=== PATIENT | female | born 1935 | race Caucasian/White ===

== ENCOUNTER 2023-05-10 08:22 | Outpatient (CLI) | payer MEDICARE, BC, SELFPAY | END 2023-05-10 08:23 | disposition home or self-care (01) | LOC: INJ CL 08:33 | PROVIDERS: PCP Family Medicine; Visit Provider Family Medicine | DX: M54.16 Radiculopathy, lumbar region (principal); M51.36 Other intervertebral disc degeneration, lumbar region | CPT/HCPCS: 62323; J0702; Q9966 ==

== ENCOUNTER 2024-01-10 09:19 | Outpatient (CLI) | payer MEDICARE, BC, SELFPAY | END 2024-01-10 09:20 | disposition home or self-care (01) | LOC: INJ CL 09:19 | PROVIDERS: PCP Family Medicine; Visit Provider Family Medicine | DX: M54.16 Radiculopathy, lumbar region (principal); M51.369 Other intervertebral disc degeneration, lumbar region without mention of lumbar back pain or lower extremity pain | CPT/HCPCS: 62323; J0702; Q9966 ==

== ENCOUNTER 2024-02-28 09:15 | Outpatient (CLI) | payer MEDICARE, BC, SELFPAY | END 2024-02-28 09:16 | disposition home or self-care (01) | LOC: INJ CL 09:16 | PROVIDERS: PCP Family Medicine; Visit Provider Family Medicine | DX: M54.16 Radiculopathy, lumbar region (principal); M51.369 Other intervertebral disc degeneration, lumbar region without mention of lumbar back pain or lower extremity pain | CPT/HCPCS: 62323; J0702; Q9966 ==

== ENCOUNTER 2024-06-19 15:03 | Outpatient (CLI) | payer MEDICARE, BC, SELFPAY ==
--- NOTE | 2024-06-19 15:30 | MR_ITS ---
[address] [address] Phone:?[phone] Fax:?[phone] Referring Physician Information: Braeden Grossman M.D. [address] [facility] [address] Phone:?[phone] Fax:?[phone] Patient:Niall Currie D.O.B:?1935 Sex:?Female Phone:? [facility] MRN:?[id number] Exam Date:?06/19/2024 EXAM: MRI OF THE LEFT KNEE CLINICAL INFORMATION: The patient is an 89-year-old with left knee pain. Evaluate for meniscal tear. PRIOR SURGERY: None reported. COMPARISON STUDIES: Comparison is made to prior radiographs dated 06/13/2024. TECHNICAL INFORMATION: Imaging was performed on a high-field, 1.5 Aubree MR scanner. Axial proton-density and fat-suppressed T2 imaging of the left knee was performed in addition to sagittal proton-density and fat-suppressed proton- density imaging. Coronal proton-density and STIR imaging was also produced. FINDINGS: Articular/Extraarticular collections: Effusion: Moderate. Popliteal cyst: A moderate popliteal cyst can be seen on sagittal series 6 image 11, measuring approximately 8.3 cm in craniocaudal dimension. Low signal intensity debris within the popliteal cyst can be seen. Surrounding soft tissue edema and/or hemorrhage is noted. Loose bodies: No well-defined intra-articular loose bodies are seen. Subcutaneous and extraarticular soft tissues: Nonspecific subcutaneous soft tissue edema and/or hemorrhage can be seen circumferentially about the left knee. Osseous structures: There is cortical irregularity, subcortical edema, and subcortical cystic change noted along the articular surfaces of the patellofemoral articulation, most prominently seen along the lateral patellar facet. The findings are in keeping with chondromalacia and chondral loss discussed below and are consistent with patellofemoral osteoarthritis. Additional mild reactive bony changes can be seen along the lateral tibial plateau, in keeping with meniscal tearing and chondral loss discussed below. No other bony abnormalities about the knee are seen. There is no evidence for fracture, contusion, or stress injury. Ligamentous structures: ACL: Intact and normal in appearance. PCL: Intact and normal in appearance. MCL: Intact and normal in appearance. LCL: Intact and normal in appearance. Posterolateral corner: Intact and normal in appearance. Posteromedial corner: No posteromedial corner soft tissue injury. Semimembranosus and pes anserine tendons demonstrate no tendinopathy or associated bursitis. Extensor mechanism/Patellar retinacular structures: Patellar tendon: Intact, without tendinopathy. Quadriceps tendon: Intact, without tendinopathy. Retinacula: The medial and lateral retinacula are intact. The medial patellofemoral ligament is intact. Medial compartment: Medial meniscus: The medial meniscus is abnormal in appearance. There is degeneration and attenuation of the middle and posterior portions of the medial meniscus with poorly defined tearing of the middle one third seen on coronal series 7 images 17 and 18. The area of tearing is thought to measure approximately 10 mm in greatest dimension. No parameniscal cyst formation is identified. Medial femoral condyle: Grade II chondromalacia can be seen along the weightbearing surfaces of the medial femoral condyle. No full-thickness chondral defects are seen. Medial tibial plateau: Grade II chondromalacia can be seen along the weightbearing surfaces of the medial tibial plateau. No full-thickness chondral defects are identified. Lateral compartment: Lateral meniscus: Broad-based, complex tearing and degeneration of the anterior, middle, and posterior portions of the lateral meniscus can be seen on sagittal series 5 image 22 and on coronal series 7 image 17. There is extension to the meniscal attachment. No definite parameniscal cyst formation is identified. Lateral femoral condyle: Grade II to III chondromalacia can be seen along the central and posterior weightbearing surfaces of the lateral femoral condyle. Lateral tibial plateau: Full-thickness and near full-thickness chondral loss can be seen along the central and posterior weightbearing surfaces of the lateral tibial plateau. Patellofemoral compartment: Patella: There is full-thickness and near full-thickness chondral loss along the lateral patellar facet with underlying bony change. Trochlea: Full-thickness chondral loss can be seen along the central and lateral articular surfaces of the femoral trochlea on axial series 4 image 17 and on sagittal series 6 image 19. The area measures 24 mm in mediolateral dimension and 17 mm in craniocaudal dimension. Neurovascular: No definite neurovascular abnormalities are seen. CONCLUSION: 1. Broad-based, complex tearing and degeneration of the anterior, middle, and posterior portions of the lateral meniscus. 2. Degeneration of the medial meniscus with poorly defined tearing of the middle one third. 3. 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 4. The cruciate and collateral ligaments appear intact. 5. Moderate knee joint effusion and moderate popliteal cyst. AEC Electronically signed on 06/20/2024 9:24:00 AM by Byron Lauren M.D.
== END 2024-06-19 15:04 | disposition home or self-care (01) ==
PROVIDERS: PCP Family Medicine; Visit Provider Orthopaedic Surgery
DX: M25.562 Pain in left knee (principal); S83.272A Complex tear of lateral meniscus, current injury, left knee, initial encounter; S83.242A Other tear of medial meniscus, current injury, left knee, initial encounter; M94.262 Chondromalacia, left knee; M25.462 Effusion, left knee; M71.22 Synovial cyst of popliteal space [Baker], left knee
CPT/HCPCS: 73721

== ENCOUNTER 2024-08-28 10:23 | Day surgery (SDC) | payer MEDICARE, BC, SELFPAY ==
[2024-08-28] VITALS (22 sets, daily range): BP systolic 94–200; BP diastolic 56–115; PULSE 57–88; RESP 14–20; TEMP 35.9–36.8; O2SAT 92–100; BMI 23.8
[2024-08-28] MEDS: LACTATED RINGERS 1000 ML 1,000 ML 100 ML IV ×2 (10:05→12:23)
[2024-08-28] MEDS: SODIUM CHLORIDE 0.9 % (FLUSH) 10 ML SYRINGE IVF (11:05)
[2024-08-28] MEDS: OXYCODONE (CR) 10 MG TAB.ER.12H PO (11:20)
[2024-08-28] MEDS: ACETAMINOPHEN 500 MG TABLET 1000 MG PO ×2 (11:20→23:42)
[2024-08-28] MEDS: fentaNYL 100 MCG/2 ML inj IVP (11:25)
[2024-08-28] MEDS: MIDAZOLAM HCL 1 MG/ML inj IVP (11:25)
--- NOTE | 2024-08-28 11:32 | SUR.PREOP ---
TIME?OUT:?1122, left knee PT/RN/MDA?VERIFICATION?OF?SURGICAL?SITE,?PROCEDURE,?AND?CONSENT OBTAINED?PRIOR?TO?INVASIVE?PROCEDURE.
[2024-08-28] MEDS: TRANEXAMIC ACID 100 MG/ML INJ 1000 MG IV (12:04)
[2024-08-28] MEDS: CEFAZOLIN 1 GM inj IVP (12:04)
--- NOTE | 2024-08-28 13:11 | CRLHL7_ITS ---
For Patients: As a result of the Cures Act, medical imaging exams and procedure reports are released immediately into your electronic medical record. You may view this report before your referring provider. If you have questions, please contact your health care provider. Indication: Post op TKA Technique: Two views left knee Findings/Impression: Hardware from a left total knee arthroplasty is in satisfactory position. Bone alignment is normal. No sign of acute fracture. Postop changes are within normal limits. Dictated by Omero Munson MD @ 08/28/2024 3:40:16 PM (Electronically Signed)
--- NOTE | 2024-08-28 13:15 | P.ORPRC_ITS ---
Procedure Note Date of procedure: 08/28/24 Procedure: PREOPERATIVE DIAGNOSIS: Left knee osteoarthritis POSTOPERATIVE DIAGNOSIS: Left knee osteoarthritis NAME OF OPERATION: Left total knee arthroplasty SURGEON: Braeden Grossman MD WEATHER STRIP INSTALLER: MARY Santos ANESTHESIA: Spinal ESTIMATED BLOOD LOSS: 0 mL COMPLICATIONS: None SPECIMENS: None DRAINS: None PREOPERATIVE ANTIBIOTICS: Ancef 1 g IMPLANTS: 1. J&J Attune # 5 posterior stabilized femur 2. #4 fixed-bearing tibia 3. # 5 posterior stabilized, 5 mm fixed-bearing polyethylene 4. 35 patella INDICATIONS: The patient is a 89-year-old with a longstanding history of severe, unrelenting left knee pain secondary to end-stage (grade IV) left knee osteoarthritis. Despite appropriate nonoperative management, including activity modification, anti-inflammatories, gtlr-tty-ghgdonn pain medication, bracing, physical therapy, and injections they continue to have pain and disability. Operative intervention was offered. The risks, benefits and expected outcomes were discussed in detail. These included but were not limited to: Infection, bleeding, injury to blood vessel or nerve, venous thromboembolism. All questions were answered to their satisfaction. Use of an assistant spa director was necessary throughout the case for patient positioning and safety, soft tissue retraction, and closure. PROCEDURE: Spinal anesthesia was administered. The patient was placed supine on the operating table. The assistant spa director made sure the patient was positioned appropriately. The lower extremity was prepped and draped in the usual sterile fashion. The limb was exsanguinated with the Sean bandage. The pneumatic tourniquet was inflated to 300 mmHg. A standard anterior incision was made with the knee in flexion. Subcutaneous dissection was sharply taken through fascial layer #1. Full-thickness medial and lateral flaps were elevated. The assistant spa director retracted the soft tissues and protected them throughout the case. A standard subvastus approach was made. The patella was subluxed. The infrapatellar fat pad was debrided. The menisci and cruciate ligaments were sharply d?brided. Marginal osteophytes were d?brided with the rongeur. The drill was used to penetrate the femoral canal. The canal was aspirated and irrigated with pulse lavage. The intramedullary femoral guide was placed for a 5-degree valgus cut, removing 12 mm off the distal femur. The saw was used to make the cut. Whitesides line and the trans epicondylar axis were marked. The femoral sizing guide was pinned onto the distal femur. Three degrees of external rotation nicely parallels the transepicondylar axis. Pins were placed for posterior referencing. The four-in-one cutting guide was pinned onto the distal femur. The anterior, posterior, and chamfer cuts were made. The assistant spa director protected the collateral ligaments. The box cutting guide was pinned. The box cuts were made. The boxed trial was placed and was an excellent fit. Drill holes for the lugs were made. Attention was then turned to the proximal tibia. The extramedullary tibial guide was placed for a neutral varus/valgus cut with 5 degrees of posterior slope, removing 2 mm based off the medial tibial surface. The assistant spa director protected the collateral ligaments and the neurovascular bundle. The saw was used to make the cut. Trial components were placed. The knee was nicely balanced in both flexion and extension. The trial components were removed. The tray was placed in appropriate rotation, parallel to our tibial cutting pins. It was pinned by the assistant spa director and the drill and the punch were used. The tray was removed. The punch was used again. We placed a bone plug in the femoral canal. Attention was then turned to the patella. [place] patellar thickness was 20.5 mm. The lobster claw resection guide was used with the 7.5 mm agata. The saw was used to make the cut. Drill holes were made by the assistant spa director. The trial was placed and was an excellent fit. Cancellous surfaces were irrigated with pulse lavage and thoroughly dried by the assistant spa director. We cemented the tibial component, then the femoral component. We impacted the 5 mm polyethylene onto the tibial tray. The knee was brought into full extension. We then cemented the patellar component. Excessive cement was removed. The cement was allowed to harden. The knee was taken through a range of motion and was found to be nicely balanced in both flexion and extension. The patella tracks centrally. The assistant spa director did a three minute dilute Betadine solution soak. The assistant spa director irrigated the wound with 3 liters of normal saline via pulse lavage. The assistant spa director reapproximated the extensor mechanism with #1 Vicryl in an interrupted [id number]-eiabk fashion. The assistant spa director then ran the extensor mechanism with a #1 PDO Stratafix. The assistant spa director closed the subcutaneous tissues with a 3-0 Stratafix and the skin with a running 3-0 Stratafix in a subcuticular fashion. Glue was used to seal the skin. The assistant spa director placed a dry dressing. Sponge and needle counts were correct x2. The patient tolerated the procedure well. There were no apparent complications. They were carefully transferred to the hospital bed and taken to the postanesthesia care unit in satisfactory condition. PLAN: The patient will be mobilized with physical therapy. Aspirin will be used for DVT prophylaxis. They will be discharged to home once medically appropriate.
--- NOTE | 2024-08-28 13:40 | P.NB_ITS ---
Nerve Block Nerve Block Time Seen by Provider: 11:24 Date Seen: 08/28/24 Type of block requested by surgeon for post-operative analgesia: adductor canal Side: left Time out performed: Yes Verification of patient name: Yes Verification of date of : Yes Site marking: site marked Name of person performing procedure: Josue Continuous monitoring Was continuous monitoring of O2 sat, B/P, alarm security or surveillance monitor, recorded every 15 minutes?: Yes Procedure Checklist: sterile prep, needles and gloves Ultrasound guided. Images saved: Yes Medications given in 5ml increments after negative aspiration: Marcaine %: 0.25 mL: 15 Needle gauge: 20 Precedex (mcg): 25 Patient tolerated procedure well: Yes Block Charges Block Charge (with Pro Fee): Femoral Nerve Use of Ultrasound Machine for Block: Yes- US Guidance/pain block
--- NOTE | 2024-08-28 13:41 | P.NB_ITS ---
Nerve Block Nerve Block Time Seen by Provider: 11:24 Date Seen: 08/28/24 Type of block requested by surgeon for post-operative analgesia: geniculars Side: left Time out performed: Yes Verification of patient name: Yes Verification of date of : Yes Site marking: site marked Name of person performing procedure: Josue Continuous monitoring Was continuous monitoring of O2 sat, B/P, rn cardiac, recorded every 15 minutes?: Yes Procedure Checklist: sterile prep, needles and gloves Ultrasound guided. Images saved: Yes Medications given in 5ml increments after negative aspiration: Marcaine %: 0.25 mL: 9 Needle gauge: 25 Patient tolerated procedure well: Yes Block Charges Block Charge (with Pro Fee): Genicular Nerve Block
--- NOTE | 2024-08-28 13:41 | W.ANESCHARGE ---
Anesthesia Charges Start Date/Time Anesthesia Start Date: 08/28/24 Anesthesia Start Time: 11:41 Stop Date/Time Anesthesia Stop Date: 08/28/24 Anesthesia Stop Time: 13:39 Summary Extremes of Age - Over 70 or under 1: MDA Coding CPT Codes Additional Codes: Summary - Extremes of Age - Over 70 or under 1: MDA ([id number])
[2024-08-28] MEDS: OXYCODONE 5 MG TABLET PO ×2 (14:31→23:42)
--- NOTE | 2024-08-28 14:34 | P.ANES_ITS ---
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
--- NOTE | 2024-08-28 14:34 | W.ANESCHARGE ---
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
[2024-08-28] MEDS: HYDROmorphone 0.5 mg/0.5 ml inj IVP ×2 (14:59→19:57)
[2024-08-28] MEDS: LOSARTAN POTASSIUM 50 MG TABLET PO (15:22)
--- NOTE | 2024-08-28 15:34 | PM.IMCN1 ---
Date of Consult Patient: Marleen Patient Consult date: 08/28/24 Requesting Physician: Orthopedics Primary Care Provider: Elroy Savage MD Consult Narrative Reason for consult: Medical management of comorbidities Narrative: Lauryn Currie is a 89 year old female who presented to the hospital today for an elective L TKA with Dr. Grossman of Orthopedic Surgery. There were no surgical or anesthetic complications noted during procedure. Patient's H&P reviewed, PCP is Dr Savage at [facility]. Past medical history significant for: essential HTN, osteoporosis, RA. History of blood clots: No Postoperative plan: Home with children Upon arrival to the floor, patient noted to have elevated blood pressure. She did not have chest pain or a headache. She did not take her morning antihypertensives today; notably her blood pressure at her preoperative visit was 120s/60s. Review of Systems Status of ROS: Reports: 10 or more systems reviewed and unremarkable except as noted in History and below [facility] Medical History (Updated 08/28/24 @ 15:39 by Camille De La Cruz MD) Lumbar radiculopathy ?M54.16 - Radiculopathy, lumbar region (ICD-10) Symptomatic menopausal or female climacteric states ?N95.1 - Menopausal and female climacteric states (ICD-10) Diffuse cystic mastopathy ?N60.19 - Diffuse cystic mastopathy of unspecified breast (ICD-10) Chronic low back pain with bilateral sciatica ?M54.41 - Lumbago with sciatica, right side (ICD-10) ?M54.42 - Lumbago with sciatica, left side (ICD-10) ?G89.29 - Other chronic pain (ICD-10) Osteopenia ?M85.80 - Other specified disorders of bone density and structure, unspecified site (ICD-10) Colon polyps ?K63.5 - Polyp of colon (ICD-10) Hiatal hernia ?K44.9 - Diaphragmatic hernia without obstruction or gangrene (ICD-10) Cataract, right eye ?H26.9 - Unspecified cataract (ICD-10) Sensorineural hearing loss (SNHL) of both ears ?H90.3 - Sensorineural hearing loss, bilateral (ICD-10) Allergic rhinitis ?J30.9 - Allergic rhinitis, unspecified (ICD-10) Hyperlipidemia ?E78.5 - Hyperlipidemia, unspecified (ICD-10) 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 ?I08.0 - Rheumatic disorders of both mitral and aortic valves (ICD-10) Hypertension ?I10 - Essential (primary) hypertension (ICD-10) Surgical History (Updated 08/28/24 @ 15:39 by Camille De La Cruz MD) Status post left knee replacement ?Z96.652 - Presence of left artificial knee joint (ICD-10) Status post epidural steroid injection (02/28/24) ?Z92.241 - Personal history of systemic steroid therapy (ICD-10) History of right breast biopsy ?Z98.890 - Other specified postprocedural states (ICD-10) H/O umbilical hernia repair (05/23/12) ?Z98.890 - Other specified postprocedural states (ICD-10) ?Z87.19 - Personal history of other diseases of the digestive system (ICD-10) History of phacoemulsification of cataract of left eye with intraocular lens implantation (05/26/14) ?Z98.42 - Cataract extraction status, left eye (ICD-10) ?Z96.1 - Presence of intraocular lens (ICD-10) History of phacoemulsification of cataract of right eye with intraocular lens implantation (05/26/14) ?Z98.41 - Cataract extraction status, right eye (ICD-10) ?Z96.1 - Presence of intraocular lens (ICD-10) History of vitrectomy (11/15/14) ?Z98.890 - Other specified postprocedural states (ICD-10) History of esophagogastroduodenoscopy (EGD) (11/24/04) ?Z98.890 - Other specified postprocedural states (ICD-10) History of total right knee replacement (11/26/20) ?Z96.651 - Presence of right artificial knee joint (ICD-10) Family History Sister Heart disease Breast cancer Diabetes Lupus Brother Aneurysm Other High blood pressure Stroke Social History (Updated 06/06/24 @ 13:53 by Munira Clark ~ FOOD SERVER, FOOD SERVER) What is your current living situation?: I presently have a place to live Problems where you live: no known problems In the past 12 months, utilities in danger of being shut off: no In past 12 months, lack of transportation kept you from medical appts, meetings, work, or getting things needed for daily living: no In the past 12 mos, have been you worried that your food would run out before you had money to buy more?: never true In the past 12 mos, the food you bought just didn't last and you didn't have money to buy more?: never true Smoking Status: Never smoker Do you use any of these nicotine containing products: None Second hand tobacco smoke exposure: No How often do you have a drink containing alcohol: 4 or more times a week Alcohol type: beer and wine How many standard drinks containing alcohol do you have on a typical day: 1 or 2 How often do you have six or more drinks on one occasion: Never AUDIT-C Alcohol total score: 4 Non-prescribed substance use: denies use Are you now , , , , never or living with a partner: Social isolation score (0-1 are the most socially isolated patients): 0 How often does anyone, including family, friends and others, physically hurt you: never How often does anyone, including family, friends and others, insult or talk down to you: never How often does anyone, including family, friends and others, threaten you with harm: never How often does anyone, including family, friends and others, scream or curse at you: never Meds Home Medications and Allergies Home Medications ?Medication ?Instructions ?Recorded ?Confirmed ?Type hydrochlorothiazide 25 mg tablet 25 mg PO DAILY 06/13/24 08/28/24 History losartan 50 mg tablet 50 mg PO DAILY 06/13/24 08/28/24 History tramadol 50 mg tablet 50 mg PO TID PRN 08/17/24 08/28/24 History trazodone 50 mg tablet 50 mg PO HS PRN 08/17/24 08/28/24 History potassium chloride 10 mEq 20 meq PO BID 08/28/24 08/28/24 History capsule,extended release Allergies Allergy/AdvReac Type Severity Reaction Status Date / Time amlodipine (From [facility]) Allergy Verified 08/28/24 10:38 clonidine Allergy Verified 08/28/24 10:38 diltiazem Allergy Verified 08/28/24 10:38 hydralazine Allergy Verified 08/28/24 10:38 morphine Allergy Shortness Verified 08/28/24 10:38 of Breath prazosin Allergy Verified 08/28/24 10:38 rofecoxib (From Vioxx) Allergy Verified 08/28/24 10:38 Exam Narrative: Exam Narrative: GEN: Alert and oriented, nontoxic, laying comfortably in bed HEENT: EOMIs bilaterally, no scleral icterus CV: RRR, soft early systolic murmur without concerning features R: LCTA bilaterally without concerning wheezing, rales, or rhonchi Skin: No concerning skin lesions or rashes on exposed skin Neuro: Nonfocal Psych: Appropriate Const: Vital Signs, click to edit/add: Vital Signs - 24 hr 08/28/24 11:03 08/28/24 11:25 08/28/24 11:34 Temperature 98.2 F Pulse Rate 71 65 57 L Respiratory Rate 20 20 20 Blood Pressure 175/94 H 187/85 H 161/93 H Pulse Oximetry 98 100 100 Oxygen Delivery Me thod Room Air Nasal Cannula Nasal Cannula Oxygen Flow Rate 2 2 08/28/24 11:38 08/28/24 13:34 08/28/24 13:40 Temperature 98.3 F Pulse Rate 58 L 81 76 Respiratory Rate 20 14 16 Blood Pressure 137/73 94/56 L 106/63 Pulse Oximetry 100 95 93 Oxygen Delivery Me thod Nasal Cannula Room Air Oxygen Flow Rate 2 08/28/24 13:45 08/28/24 13:50 08/28/24 13:55 Temperature Pulse Rate 73 74 70 Respiratory Rate 14 16 15 Blood Pressure 122/72 131/72 139/114 H Pulse Oximetry 92 95 96 Oxygen Delivery Me thod Oxygen Flow Rate 08/28/24 14:00 08/28/24 14:07 08/28/24 14:15 Temperature 97.6 F 97.1 F L Pulse Rate 69 63 61 Respiratory Rate 14 16 16 Blood Pressure 149/85 H 163/85 H 161/92 H Pulse Oximetry 95 99 97 Oxygen Delivery Me thod Room Air Room Air Oxygen Flow Rate 08/28/24 14:30 08/28/24 14:45 08/28/24 15:00 Temperature 96.6 F L 97.1 F L Pulse Rate 62 62 66 Respiratory Rate 16 16 16 Blood Pressure 176/115 H 200/109 H 189/87 H Pulse Oximetry 95 97 98 Oxygen Delivery Me thod Room Air Room Air Room Air Oxygen Flow Rate Assessment and Plan Assessment and plan (1) Status post left knee replacement: Problem comment: - 08/28/24, Dr. Grossman Status: Acute (2) Hypertension: Status: Acute Plan - pain management and prophylaxis per orthopedic surgery team - continue home medications for comorbidities - anticipate routine postoperative course
[2024-08-28] MEDS: CEFAZOLIN 2 GM in 0.9 % SODIUM CHLORIDE Mini-bag 100 ML IVPB (17:42)
[2024-08-28] MEDS: ONDANSETRON 2 MG/ML inj 4 MG IVP (19:37)
[2024-08-28] MEDS: LACTATED RINGERS 1000 ML 1,000 ML 75 ML IV (19:57)
[2024-08-28] MEDS: POTASSIUM CHLORIDE 10 MEQ CAPSULE ER 20 MEQ PO (21:09)
[2024-08-28] MEDS: ASPIRIN 81 MG TABLET EC PO (21:09)
[2024-08-28] MEDS: SENNOSIDES 1 TAB TABLET 2 TAB PO (21:09)
[2024-08-28] MEDS: TRAZODONE HCL 50 MG TABLET PO (21:14)
[2024-08-29] MEDS: CEFAZOLIN 2 GM in 0.9 % SODIUM CHLORIDE Mini-bag 100 ML IVPB (02:44)
[2024-08-29] MEDS: ONDANSETRON 2 MG/ML inj 4 MG IVP (02:50)
[2024-08-29 03:15] VITALS: BP 129/83; PULSE 73; RESP 18; TEMP 36.4; O2SAT 94
[2024-08-29] MEDS: ACETAMINOPHEN 500 MG TABLET 1000 MG PO ×2 (06:15→11:50)
--- NOTE | 2024-08-29 06:39 | PC.NURSE ---
Picked up at 2300: Pt pleasant, alert and oriented though confused overnight. Pt made attempts to get out of bed, and bed alarms on. Dressing C/D/I. Ice pack to op site. Pt 1a walker and gait belt. Pt stated, ?I haven't slept at all, it's been a week? a calm environment provided. Pt stated pain rated at 6/10, prn oxy given. Pt stated nausea, prn Zofran given. Pt in bed, appears to be resting, call light within reach.?
[2024-08-29 06:49] LABS: Basophils Absolute Auto 0.01 K/uL (0.00-0.30); Basophils Percent Auto 0.1 % (0.0-3.0); Hematocrit 33.4 % (33.0-51.0); Hemoglobin* 11.4 gm/dL (12.0-16.0); Immature Granulocytes Abs Auto 0.02 K/uL (0.00-0.30); Immature Granulocytes Pct Auto 0.2 %; Lymphocytes Percent Auto 16.1 % (20-44); Mean Corpuscular HGB Conc 34 gm/dL (32-36); Mean Corpuscular Hemoglobin 31 pg (26-34); Mean Corpuscular Volume 90 fL (80-100); Neutrophils Percent Auto 75.6 % (42.0-72.0); Platelet Count* 179 K/uL (140-440); RDW Coefficient of Variation % 12.6 % (11.5-15.5); White Blood Count* 10.84 K/uL (4.50-11.00)
[2024-08-29 06:50] LABS: Slide Review Reflex No
[2024-08-29 06:51] LABS: Chloride* 94 mmol/L (96-114); Potassium* 3.6 mmol/L (3.6-5.1); Sodium* 130 mmol/L (135-149)
[2024-08-29 06:54] LABS: Blood Urea Nitrogen* 19 mg/dL (7-30); Creatinine* 0.6 mg/dL (0.5-1.5); Est. Creatinine Clearance* 28.47; Estimated Glomerular Filt Rate 87 ml/min
[2024-08-29 06:55] LABS: Anion Gap 8 mEq/L (7-15); Calcium* 9.1 mg/dL (8.4-10.6); Carbon Dioxide* 28 mmol/L (20-32); Glucose* 127 mg/dL (60-115)
[2024-08-29 07:28] VITALS: BP 131/79; PULSE 74; RESP 16; TEMP 36.7; O2SAT 99
[2024-08-29 07:46] VITALS: O2SAT 99
[2024-08-29] MEDS: POTASSIUM CHLORIDE 10 MEQ CAPSULE ER 20 MEQ PO (08:22)
[2024-08-29] MEDS: SENNOSIDES 1 TAB TABLET 2 TAB PO (08:22)
[2024-08-29] MEDS: ASPIRIN 81 MG TABLET EC PO (08:22)
[2024-08-29] MEDS: hydroCHLOROthiazide 25 MG TABLET PO (08:23)
[2024-08-29] MEDS: OXYCODONE 5 MG TABLET PO ×2 (08:23→11:50)
[2024-08-29] MEDS: LOSARTAN POTASSIUM 50 MG TABLET PO (08:23)
--- NOTE | 2024-08-29 08:28 | PM.ORPN ---
Subjective Subjective Time Seen by Provider: 08:28 Date Seen: 08/29/24 Principal diagnosis: Status post left knee replacement Interval history: Lauryn is comfortable this morning. She is ambulating well. She denies current nausea and is not confused. She will discharge home today. Nausea and confusion yesterday. Ortho Exam Narrative Exam Narrative: Alert and oriented x3. Patient is in no acute distress. Converses without labored breathing. Hearing is grossly intact. Ambulates with a walker. Examination of the left knee shows the dressing is intact. No erythema or warmth or sign of infection. She is able to straight leg raise. Fullness behind the knee from previous very large popliteal cyst, now likely filled with blood. Calves are soft and nontender. CMS is intact left lower extremity. Const Vital Signs, click to edit/add: Vital Signs - 24 hr 08/28/24 11:03 08/28/24 11:25 08/28/24 11:34 Temperature 98.2 F Pulse Rate 71 65 57 L Pulse Rate [Left Dorsalis Pedis] Pulse Rate [Right Pulse Oximeter] Respiratory Rate 20 20 20 Blood Pressure 175/94 H 187/85 H 161/93 H Blood Pressure [Left Arm] Pulse Oximetry 98 100 100 Oxygen Delivery Method Room Air Nasal Cannula Nasal Cannula Oxygen Flow Rate 2 2 08/28/24 11:38 08/28/24 13:34 08/28/24 13:40 Temperature 98.3 F Pulse Rate 58 L 81 76 Pulse Rate [Left Dorsalis Pedis] Pulse Rate [Right Pulse Oximeter] Respiratory Rate 20 14 16 Blood Pressure 137/73 94/56 L 106/63 Blood Pressure [Left Arm] Pulse Oximetry 100 95 93 Oxygen Delivery Method Nasal Cannula Room Air Oxygen Flow Rate 2 08/28/24 13:45 08/28/24 13:50 08/28/24 13:55 Temperature Pulse Rate 73 74 70 Pulse Rate [Left Dorsalis Pedis] Pulse Rate [Right Pulse Oximeter] Respiratory Rate 14 16 15 Blood Pressure 122/72 131/72 139/114 H Blood Pressure [Left Arm] Pulse Oximetry 92 95 96 Oxygen Delivery Method Oxygen Flow Rate 08/28/24 14:00 08/28/24 14:07 08/28/24 14:15 Temperature 97.6 F 97.1 F L Pulse Rate 69 63 61 Pulse Rate [Left Dorsalis Pedis] Pulse Rate [Right Pulse Oximeter] Respiratory Rate 14 16 16 Blood Pressure 149/85 H 163/85 H 161/92 H Blood Pressure [Left Arm] Pulse Oximetry 95 99 97 Oxygen Delivery Method Room Air Room Air Oxygen Flow Rate 08/28/24 14:30 08/28/24 14:45 08/28/24 15:00 Temperature 96.6 F L 97.1 F L Pulse Rate 62 62 66 Pulse Rate [Left Dorsalis Pedis] Pulse Rate [Right Pulse Oximeter] Respiratory Rate 16 16 16 Blood Pressure 176/115 H 200/109 H 189/87 H Blood Pressure [Left Arm] Pulse Oximetry 95 97 98 Oxygen Delivery Method Room Air Room Air Room Air Oxygen Flow Rate 08/28/24 15:00 08/28/24 15:30 08/28/24 16:00 Temperature 96.6 F L Pulse Rate 66 68 Pulse Rate [Left Dorsalis Pedis] Pulse Rate [Right Pulse Oximeter] Respiratory Rate 16 16 14 Blood Pressure 186/90 H 151/90 H Blood Pressure [Left Arm] Pulse Oximetry 92 96 95 Oxygen Delivery Method Room Air Room Air Room Air Oxygen Flow Rate 08/28/24 17:00 08/28/24 18:00 08/28/24 19:00 Temperature 97 F L 97.1 F L 97.1 F L Pulse Rate 76 80 88 Pulse Rate [Left Dorsalis Pedis] Pulse Rate [Right Pulse Oximeter] Respiratory Rate 16 16 16 Blood Pressure 157/82 H 147/76 H 151/82 H Blood Pressure [Left Arm] Pulse Oximetry 97 92 96 Oxygen Delivery Method Room Air Room Air Room Air Oxygen Flow Rate 08/28/24 23:30 08/28/24 23:30 08/28/24 23:35 Temperature 98.2 F Pulse Rate Pulse Rate [Left Dorsalis Pedis] Pulse Rate [Right Pulse Oximeter] 79 79 Respiratory Rate 18 18 Blood Pressure Blood Pressure [Left Arm] 129/82 Pulse Oximetry 97 97 Oxygen Delivery Method Room Air Room Air Oxygen Flow Rate 08/29/24 03:15 08/29/24 07:28 08/29/24 07:46 Temperature 97.6 F 98.0 F Pulse Rate Pulse Rate [Left Dorsalis Pedis] 74 Pulse Rate [Right Pulse Oximeter] 73 Respiratory Rate 18 16 Blood Pressure Blood Pressure [Left Arm] 129/83 131/79 Pulse Oximetry 94 99 99 Oxygen Delivery Method Room Air Room Air Room Air Oxygen Flow Rate Assessment and Plan Assessment and plan (1) Status post left knee replacement: Problem details: - 08/28/24, Dr. Grossman Status: Acute Assessment and Plan: Plan for discharge is today to home if they meet discharge criteria. DVT prophylaxis includes aspirin 81 mg twice daily x1 month, Compression stockings as needed for swelling. Frequent ambulation, every hour throughout the day. Remove dressing in 1 week. Observe wound and phone Orthopedics with any questions or concerns Return to clinic in 1 week for a wound check Return to clinic in 6 weeks with surgeon Minimize narcotic use. Wean off and discontinue soon as possible. Activities as tolerated. No strenuous activity. Outpatient physical therapy as scheduled. Ice and elevate the operative extremity. No restriction on ice. Anti nausea medication is sent to her pharmacy as well.
--- NOTE | 2024-08-29 12:00 | PC.NURSE ---
Patient discharged home with son. PIV taken out and catheter intact. VSS. Lung sounds clear. Pain controlled with PO pain meds. Denies nausea. Incision clean, dry and intact. CWMS good. Tolerating a regular diet. Voiding, passing flatus. All questions answered. Left via wheelchair escort.
--- NOTE | 2024-08-29 15:18 | PC.SOCIAL ---
Pt. discharged home today with family support. Pt. is doing well and no additional resources needed.
== END 2024-08-29 12:00 | disposition home or self-care (01) ==
LOC: OR 10:27 → MEDSURG 12:25
PROVIDERS: Family Medicine; PCP Family Medicine; Visit Provider Orthopaedic Surgery
PROC: (CPT 27447; principal; 2024-08-28 12:30)
DX: M17.12 Unilateral primary osteoarthritis, left knee (principal); G89.18 Other acute postprocedural pain; I10 Essential (primary) hypertension; M06.9 Rheumatoid arthritis, unspecified; M81.0 Age-related osteoporosis without current pathological fracture; E78.5 Hyperlipidemia, unspecified
CPT/HCPCS: 27447; 01402; 36415; 64447; 64454; 73560; 76942; 80048; 85025; 97110; 97161; 97165; 97530; 97535; 99100; A9270; C1776; J0665; J0690; J1100; J1171; J2250; J2405; J2704; J3010; J7120